=== PATIENT | female | born 1965 | race American Indian/Alaskan Native ===

== ENCOUNTER 2017-01-31 14:50 | Emergency (ER) | payer SELFPAY ==
[2017-01-31 14:58] VITALS: BMI 36.9
--- NOTE | 2017-01-31 15:13 | ED PDOC ---
Arrival/HPI - General Time Seen by Provider: 01/31/17 14:55 Historian: Patient, Family (Daughter), EMS - History of Present Illness Narrative History of Present Illness (Text): 01/31/17 15:07 A 51 year old female whose past medical history includes hypertension, depression, and chronic back pain, presents to the emergency department via EMS. As per EMS and family, the patient was sitting at home on a chair when the family noticed that her arms and legs started shaking. The patient began foaming at the mouth and it began to twitch towards the right, while staring blankly ahead. The family stated that the patient was in this condition for about 2 minutes. The family states that they slowly placed her on the floor. The patient slowly came back to baseline mental status at home. The patient states that she does not recall what happened and that she has never had a seizure in the past. The patient denies fevers, chills, headache, dizziness, sore throat, cough, sore throat, chest pain, shortness of breath, dyspnea on exertion, abdominal pain, nausea, vomiting, diarrhea, neck pain, back pain, urinary/bowel changes, trauma/injury, drug/ ETOH use, family histroy of seizures , or any other complaints. Time/Duration: Prior to Arrival Symptom Onset: Sudden Symptom Course: Unchanged Activities at Onset: Rest, Light Context: Home Past Medical History - Provider Review Nursing Documentation Reviewed: Yes Family/Social History - Physician Review Nursing Documentation Reviewed: Yes Family/Social History: No Known Family HX Allergies/Home Meds Allergies/Adverse Reactions: Allergies No Known Allergies Allergy (Verified 01/31/17 15:07) Home Medications: Home Meds Medication Instructions Recorded Confirmed Valsartan [Diovan] 40 mg PO DAILY MDD 40 01/31/17 01/31/17 buPROPion [Wellbutrin] 75 mg PO DAILY 01/31/17 01/31/17 Review of Systems - Physician Review All systems were reviewed & negative as marked: Yes - Review of Systems Constitutional: absent: Fevers ENT: absent: Sore Throat Respiratory: absent: SOB, Cough Cardiovascular: absent: Chest Pain, GUAMAN Gastrointestinal: absent: Abdominal Pain, Stool Changes, Diarrhea, Nausea, Vomiting Genitourinary Female: absent: Urine Output Changes Musculoskeletal: absent: Back Pain, Neck Pain Neurological: Seizure. absent: Headache, Dizziness Physical Exam Vital Signs Pulse Resp BP Pulse Ox 01/31/17 18:09 88 18 158/85 H 100 Pulse: Regular - Systems Exam Head: Present: Atraumatic, Normocephalic Pupils: Present: PERRL Extroacular Muscles: Present: EOMI Conjunctiva: Present: Normal Mouth: Present: Moist Mucous Membranes Neck: Present: Normal Range of Motion Respiratory/Chest: Present: Clear to Auscultation, Good Air Exchange. No: Respiratory Distress, Accessory Muscle Use Cardiovascular: Present: Regular Rate and Rhythm, Normal S1, S2. No: Murmurs Abdomen: Present: Normal Bowel Sounds. No: Tenderness, Distention, Peritoneal Signs Back: Present: Normal Inspection Upper Extremity: Present: Normal Inspection. No: Cyanosis, Edema Lower Extremity: Present: Normal Inspection. No: Edema Neurological: Present: GCS=15, CN II-XII Intact, Speech Normal, Motor Func Grossly Intact, Normal Sensory Function, Normal Cerebellar Funct, Norm Deep Tendon Reflexes, Gait Normal, Normal 2Pt Descrimination Skin: Present: Diaphoretic Psychiatric: Present: Alert, Oriented x 3, Normal Insight, Normal Concentration Medical Decision Making ED Course and Treatment: 01/31/17 15:15 Impression: A 51 year old female presents to the emergency department via EMS s/p seizure. The patient does not remember the episode. r/o Electrolyte abnormality, r/o ICH , r/o Medication Reaction Plan: -- Head CT -- EKG -- Urinalysis -- Labs -- Reassess and disposition Progress Notes: 01/31/17 15:16: Patient was seen immediately upon arrival. EKG: Ordered, reviewed, and independently interpreted the EKG. Rate : 98 BPM Rhythm : NSR Interpretation : RBBB CT HEAD WITHOUT CONTRAST Dictator : Cristal Quiros MD Report Date : 01/31/2017 16:30:34 IMPRESSION: No acute intracranial pathology identified. 01/31/17 18:40 I discussed case with Dr. Marx Neurologist who states that we should consider the Wellbutrin as a cause for the seizure. Patient states she just started it 2 weeks ago. He advised discontinuing the medication and to follow up with her psychiatrist for the change in medication. He also states that she can't drive for 90 days and she can follow up with him as an outpatient this week. During her course of the ED she's had no symptoms. She has had no seizures. She has had no pain. She states that she does want to go home and feels comfortable with the follow up plan. She states that she has her own Neurologist to follow up with and will do so immediately. She understands the follow up instructions by repeated them to me. - Critical Care Critical Care Minutes: Other (15 minutes) - Lab Interpretations Lab Results: 01/31/17 15:20 01/31/17 15:20 Lab Results 01/31/17 15:20: Alcohol, Quantitative < 10 01/31/17 15:20: Sodium 145, Potassium 3.5 L, Chloride 106, Carbon Dioxide 21, Anion Gap 22 H, BUN 13, Creatinine 1.4 H, Est GFR ( Amer) 48, Est GFR ( Non-Af Amer) 39, Random Glucose 116 H, Calcium 9.5, Magnesium 2.2, Total Bilirubin 0.5, AST 21, ALT 19, Alkaline Phosphatase 82, Lactate Dehydrogenase 457, Total Creatine Kinase 123, Troponin I < 0.01, Total Protein 7.6, Albumin 4.4, Globulin 3.2, Albumin/Globulin Ratio 1.4 01/31/17 15:20: WBC 5.3, RBC 4.54, Hgb 13.5, Hct 39.4, MCV 86.8, MCH 29.7, MCHC 34.3, RDW 13.2, Plt Count 221, MPV 9.8, Gran % 49.8 L, Lymph % (Auto) 38.2 H, [place] % (Auto) 7.4 H, Eos % (Auto) 4.4, Baso % (Auto) 0.2, Gran # 2.62, Lymph # 2.0, [place] # 0.4, Eos # 0.2, Baso # 0.01 I have reviewed the lab results: Yes - RAD Interpretation Radiology Orders: 01/31/17 15:09 HEAD W/O CONTRAST [CT] Stat - EKG Interpretation Interpreted by ED Physician: Yes Type: 12 lead EKG - Medication Orders Current Medication Orders: Discontinued Medications Sodium Chloride (Sodium Chloride 0.9%) 1,000 mls @ 999 mls/hr IV .Q1H1M STA Stop: 01/31/17 17:52 Last Admin: 01/31/17 17:22 Dose: 999 mls/hr eMAR Start Stop Document 01/31/17 17:22 (Rec: 01/31/17 17:22 [facility] [id number]) Intravenous Solution Start Date 01/31/17 Start Time 17:22 Lorazepam (Ativan) 1 mg IVP ONCE ONE PRN Reason: Protocol Stop: 01/31/17 16:53 Last Admin: 01/31/17 17:22 Dose: 1 mg IVP Administration Document 01/31/17 17:22 (Rec: 01/31/17 17:22 [facility] [id number]) Charges for Administration # of IVP Administrations 1 Potassium Chloride (K-Dur 20 Meq Er Tab) 40 meq PO STAT STA Stop: 01/31/17 16:10 Last Admin: 01/31/17 17:22 Dose: 40 meq - Scribe Statement The provider has reviewed the documentation as recorded by the Scribe Kristen Rosales Provider Scribe Attestation: All medical record entries made by the Scribe were at my direction and personally dictated by me. I have reviewed the chart and agree that the record accurately reflects my personal performance of the history, physical exam, medical decision making, and the department course for this patient. I have also personally directed, reviewed, and agree with the discharge instructions and disposition. Disposition/Present on Arrival - Present on Arrival Any Indicators Present on Arrival: No - Disposition Have Diagnosis and Disposition been Completed?: Yes Diagnosis: Seizure Disposition: HOME/ ROUTINE Disposition Time: 18:45 Patient Plan: Discharge Patient Problems: Current Active Problems Problem Status Onset Seizure Acute Condition: IMPROVED Discharge Instructions (ExitCare): New-Onset Seizure in Adults (ED) Additional Instructions: Alonzo Molinamarkel, thank you for letting us take care of you today. Your provider was Dr. Galvan. You were treated for Seizure. The emergency medical care you received today was directed at your acute symptoms. If you were prescribed any medication, please fill it and take as directed. It may take several days for your symptoms to resolve. Return to the Emergency Department if your symptoms worsen, do not improve, or if you have any other problems. PLEASE MAKE SURE TO FOLLOW UP WITH DR. AKBAR MARX THIS WEEK. DO NOT DRIVE FOR 90 DAYS. Discontinue wellbutrin until follow up with your Psychiatrist. Please contact your doctor or call one of the physicians/clinics you have been referred to that are listed on the Patient Visit Information form that is included in your discharge packet. Bring any paperwork you were given at discharge with you along with any medications you are taking to your follow up visit. Our treatment cannot replace ongoing medical care by a primary care provider (PCP) outside of the emergency department. Thank you for allowing the [facility] team to be part of your care today. If you had an X-Ray or CT scan: A Radiologist will review the ED reading if any change in treatment is needed we will contact you. If you had a blood, urine, or wound culture: It will take several days for the results, if any change in treatment is needed we will contact you. If you had an STI test: It will take 48 hours for the results. Please call after 1 week if you have not heard back. Referrals: Joseline Winn MD [Primary Care Provider] - Follow up with primary Akbar Marx MD [Staff Provider] - Follow up with primary Forms: [employer] (Citizen [place]), WORK NOTE
[2017-01-31 16:03] LABS: ALB/GLOB RATIO 1.4 (1.1-1.8); ALKALINE PHOSPHATASE 82 U/L (38-126); ALT/SGPT 19 U/L (7-56); AST/SGOT 21 U/L (14-36); BILIRUBIN,TOTAL 0.5 mg/dL (0.2-1.3); BLOOD UREA NITROGEN 13 mg/dL (7-21); CALCIUM 9.5 mg/dL (8.4-10.5); CARBON DIOXIDE 21 mmol/L (21-33); CHLORIDE 106 mmol/L (98-107); GFR AFRICAN-AMERICAN 48; GLUCOSE,RANDOM 116 mg/dL (70-110); MAGNESIUM 2.2 mg/dL (1.7-2.2); POTASSIUM 3.5 mmol/L (3.6-5.0); SODIUM 145 mmol/L (132-148); TOTAL PROTEIN 7.6 g/dL (5.8-8.3)
[2017-01-31 16:06] LABS: BASO # 0.01 K/mm3 (0.0-2.0); BASO % 0.2 % (0.0-3.0); EOS # 0.2 (0.0-0.7); EOS % 4.4 % (1.5-5.0); GRAN # 2.62 (1.4-6.5); GRAN % 49.8 % (50.0-68.0); HEMATOCRIT 39.4 % (36.0-48.0); LYMPH % 38.2 % (22.0-35.0); MEAN CELL VOLUME 86.8 fl (80.0-105.0); MEAN CORPUSCULAR HEMOGLOBIN 29.7 pg (25.0-35.0); MEAN CORPUSCULAR HGB CONC 34.3 g/dl (31.0-37.0); MEAN PLATELET VOLUME 9.8 fl (7.0-11.0); MONO # 0.4 (0.1-0.6); MONO % 7.4 % (1.0-6.0); RED CELL DISTRIBUTION WIDTH 13.2 % (11.5-14.5); WHITE BLOOD COUNT 5.3 10^3/ul (4.5-11.0)
[2017-01-31] MEDS ORDERED: Potassium Chloride 20 mEq ER Tab PO STA (16:09)
[2017-01-31 16:16] LABS: TROPONIN I < 0.01 ng/mL
--- NOTE | 2017-01-31 16:32 | CT ---
PROCEDURE: CT HEAD WITHOUT CONTRAST. HISTORY: new onset seizure COMPARISON: None available. TECHNIQUE: Axial computed tomography images were obtained through the head/brain without intravenous contrast. Radiation dose: Total exam DLP = 726.57 mGy-cm. This CT exam was performed using one or more of the following dose reduction techniques: Automated exposure control, adjustment of the mA and/or kV according to patient size, and/or use of iterative reconstruction technique. FINDINGS: HEMORRHAGE: No intracranial hemorrhage. BRAIN: No mass effect or edema. The blank-white matter differentiation appears intact. Please note that MRI with diffusion imaging is more sensitive in the detection of acute ischemic event. VENTRICLES: No hydrocephalus. CALVARIUM: Unremarkable. PARANASAL SINUSES: Unremarkable as visualized. No significant inflammatory changes. MASTOID AIR CELLS: Unremarkable as visualized. No inflammatory changes. OTHER FINDINGS: None. IMPRESSION: No acute intracranial pathology identified.
[2017-01-31] MEDS ORDERED: Sodium Chloride 0.9% 1,000 ML IV STA (16:52)
[2017-01-31 18:11] VITALS: BP 158/85; PULSE 88; RESP 18; O2SAT 100
--- NOTE | 2017-02-01 19:52 | CARD ---
APPROVED REPORT EKG Measurement Heart [id number] <Conclusion> Normal sinus rhythm Possible Left atrial enlargement Right bundle branch block T wave abnormality, consider inferior ischemia Abnormal ECG
== END 2017-01-31 18:59 | disposition home or self-care (01) ==
LOC: ED 14:50
DX: R56.9 Unspecified convulsions (principal); I10 Essential (primary) hypertension
CPT/HCPCS: 70450; 80053; 82550; 83615; 83735; 84484; 85025; 93005; 96361; 96374; 99285; G0480; J2060; J7040